=== PATIENT | male | born 1950 | race Caucasian/White ===

== ENCOUNTER 2017-07-26 15:39 | Emergency (ER) | payer BC, MEDICARE ==
[~2017-07-26] VITALS: Ht 177.8 cm; Wt 85.0 kg
[2017-07-26 15:50] VITALS: BP 199/88; PULSE 94; RESP 18; O2SAT 99
[2017-07-26] MEDS ORDERED: SODIUM CHLOR 0.9% 1000 ML INJ 1,000 ML IV ONE (15:53)
--- NOTE | 2017-07-26 15:56 | PD ---
HPI Chief Complaint: Syncope/Near-Syncope Time Seen by Provider: 15:49 Travel History International Travel<30 days: No Contact w/Intl Traveler<30days: No Traveled to known affect area: No History of Present Illness HPI 66-year-old male visiting from [place] presented to emergency department via EMS after witnessed syncopal episode this morning. Patient is down visiting from [place] with a couple of his buddies, they were playing golf yesterday and had several beers. He states he was at the pool this morning had some coffee and a few more beers, when he suddenly felt faint, and unwell and needed some water. He states he broke out in a sweat and then had a witnessed syncopal event for approximately 20-30 seconds. Patient denies previous cardiac history, he denies shortness of breath, chest pain, mild nausea but no vomiting or diarrhea. He has no fever or recent illness noted. Patient states he takes lisinopril 40 mg daily as well as a cholesterol medicine. Otherwise he states he has no significant past medical history. He is allergic to an antibiotic which he cannot remember the name of. [facility] Past Medical History Hypertension: Yes Musculoskeletal: Yes (Rt ankle repair) ?: Not Social History Alcohol Use: Yes (ON OCCASION) Tobacco Use: Yes (5 cigs daily) Substance Use: No Allergies-Medications (Allergen,Severity, Reaction): Uncoded Allergies: unknown antibiotic (Allergy, Mild, 07/26/17) Review of Systems Except as stated in HPI: all other systems reviewed are Neg General / Constitutional: No: Fever, Chills Eyes: No: Diploplia, Blurred Vision, Photophobia, Drainage, Visual changes HENT: Positive: Lightheadedness, No: Headaches, Vertigo, Sore Throat, Rhinitis , Rhinorrhea, Congestion, Nosebleed, Neck Stiffness, Neck Pain Cardiovascular: Positive: Syncope (See history of present illness), No: Chest Pain or Discomfort, Palpitations, Tachycardia, Dyspnea on exertion Respiratory: No: Cough, Shortness of Breath, Wheezing Gastrointestinal: No: Nausea, Vomiting, Diarrhea, Abdominal Pain Genitourinary: No: Dysuria Musculoskeletal: No: Pain Skin: No Rash Neurologic: No: Weakness Psychiatric: No: Depression Endocrine: No: Polydipsia Hematologic/Lymphatic: No: Easy Bruising Physical Exam Narrative GENERAL: Patient appears somewhat tired but otherwise alert and oriented 3. SKIN: Warm and dry. Mild pallor. Normal turgor. Mild diaphoresis. HEAD: Atraumatic. Normocephalic. EYES: Pupils equal and round. No scleral icterus. No injection or drainage. ENT: No nasal bleeding or discharge. Mucous membranes pink and moist. Pharynx is clear. Airways patent. NECK: Trachea midline. Supple and nontender.. CARDIOVASCULAR: Regular rate and rhythm. No murmurs gallops or rubs per RESPIRATORY: No accessory muscle use. Clear to auscultation. Breath sounds equal bilaterally. GASTROINTESTINAL: Abdomen soft, non-tender, nondistended. Hepatic and splenic margins not palpable. MUSCULOSKELETAL: Extremities without clubbing, cyanosis, or edema. No obvious deformities. NEUROLOGICAL: Awake and alert. No obvious cranial nerve deficits. Motor grossly within normal limits. Five out of 5 muscle strength in the arms and legs. Normal speech. PSYCHIATRIC: Appropriate mood and affect; insight and judgment normal. Data Data Last Documented VS Vital Signs Date Time Temp Pulse Resp B/P (MAP) Pulse Ox O2 Delivery O2 Flow Rate FiO2 07/26/17 16:05 92 18 174/72 (106) 104 18 186/80 (115) 102 18 193/86 (121) 07/26/17 16:05 96 Room Air Orders Orders Electrocardiogram (07/26/17 15:53) Complete Blood Count With Diff (07/26/17 15:53) Comprehensive Metabolic Panel (07/26/17 15:53) Magnesium (Mg) (07/26/17 15:53) Ckmb (Isoenzyme) Profile (07/26/17 15:53) Troponin I (07/26/17 15:53) Act Partial Throm Time (Ptt) (07/26/17 15:53) Prothrombin Time / Inr (Pt) (07/26/17 15:53) Urinalysis - C+S If Indicated (07/26/17 15:53) Chest, Single Ap (07/26/17 15:53) Ecg Monitoring (07/26/17 15:53) Iv Access Insert/Monitor (07/26/17 15:53) Oximetry (07/26/17 15:53) Sodium Chloride 0.9% Flush (Ns Flush) (07/26/17 16:00) Sodium Chlor 0.9% 1000 Ml Inj (Ns 1000 M (07/26/17 15:53) Orthostatic Vital Signs (07/26/17 15:53) D-Dimer (07/26/17 15:56) CKMB (07/26/17 16:04) CKMB% (07/26/17 16:04) Labs Laboratory Tests Test 07/26/17 16:04 07/26/17 17:02 White Blood Count 9.0 TH/MM3 Red Blood Count 4.78 MIL/MM3 Hemoglobin 15.1 GM/DL Hematocrit 43.9 % Mean Corpuscular Volume 91.8 FL Mean Corpuscular Hemoglobin 31.5 PG Mean Corpuscular Hemoglobin Concent 34.3 % Red Cell Distribution Width 14.8 % Platelet Count 226 TH/MM3 Mean Platelet Volume 9.0 FL Neutrophils (%) (Auto) 72.4 % Lymphocytes (%) (Auto) 17.3 % Monocytes (%) (Auto) 7.7 % Eosinophils (%) (Auto) 2.1 % Basophils (%) (Auto) 0.5 % Neutrophils # (Auto) 6.5 TH/MM3 Lymphocytes # (Auto) 1.6 TH/MM3 Monocytes # (Auto) 0.7 TH/MM3 Eosinophils # (Auto) 0.2 TH/MM3 Basophils # (Auto) 0.0 TH/MM3 CBC Comment DIFF FINAL Differential Comment Prothrombin Time 10.2 SEC Prothromb Time International Ratio 1.0 RATIO Activated Partial Thromboplast Time 23.0 SEC D-Dimer Quantitative (PE/DVT) 0.25 MG/L FEU Blood Urea Nitrogen 15 MG/DL Creatinine 1.07 MG/DL Random Glucose 118 MG/DL Total Protein 7.3 GM/DL Albumin 3.9 GM/DL Calcium Level 8.2 MG/DL Magnesium Level 2.3 MG/DL Alkaline Phosphatase 76 U/L Aspartate Amino Transf (AST/SGOT) 22 U/L Alanine Aminotransferase (ALT/SGPT) 30 U/L Total Bilirubin 0.4 MG/DL Sodium Level 137 MEQ/L Potassium Level 4.1 MEQ/L Chloride Level 102 MEQ/L Carbon Dioxide Level 26.1 MEQ/L Anion Gap 9 MEQ/L Estimat Glomerular Filtration Rate 69 ML/MIN Total Creatine Kinase 131 U/L Creatine Kinase MB 2.3 NG/ML Troponin I LESS THAN 0.02 NG/ML Urine Color YELLOW Urine Turbidity CLEAR Urine pH 6.0 Urine Specific [place] 1.013 Urine Protein NEG mg/dL Urine Glucose (UA) NEG mg/dL Urine Ketones NEG mg/dL Urine Occult Blood NEG Urine Nitrite NEG Urine Bilirubin NEG Urine Urobilinogen LESS THAN 2.0 MG/DL Urine Leukocyte Esterase NEG Urine RBC LESS THAN 1 /hpf Urine WBC 1 /hpf Urine Mucus FEW /lpf Microscopic Urinalysis Comment CULT NOT INDICATED MDM Medical Decision Making Medical Screen Exam Complete: Yes Emergency Medical Condition: Yes Differential Diagnosis Electrolyte imbalance. Cardiac syndrome. PE. Syncopal episode. Dehydration. Narrative Course Patient appears medically stable at time of exam EKG shows sinus rhythm with first AV block with possible anterior septal myocardial infarction of indeterminate age. This is reviewed with Dr. Canales who recommends checking a d-dimer to rule out PE. Labs ordered including CBC, CMP, urinalysis, magnesium, cardiac panel, and d- dimer. IV access is obtained the patient is given 1000 mL normal saline bolus. Orthostatics are ordered. Chest x-ray is ordered. Chest x-ray is unremarkable for acute process. CBC is unremarkable. Coagulation studies are normal. D-dimer is negative. Chemistries are unremarkable except for a GFR of 69, glucose of 118, calcium is 8.2. First troponin is less than 0.02. Urinalysis is unremarkable. Patient is reassessed after saline boluses and he feels much improved. Discussed the patient with Dr. Canales who recommends possible observation in the chest pain center. This was discussed with the patient feels that he does not need to do that at this time. I feel he is appropriately stable for discharge and will follow-up if symptoms recur. Patient is encouraged to take it easy and push fluids over the next several days. I recommend avoiding alcohol for several days as well. Diagnosis Primary Impression: Syncope and collapse Patient Instructions: General Instructions, Lightheadedness (ED) Additional Instructions: Chest x-ray is unremarkable for acute process. CBC is unremarkable. Coagulation studies are normal. D-dimer is negative. Chemistries are unremarkable except for a GFR of 69, glucose of 118, calcium is 8.2. First troponin is less than 0.02. Urinalysis is unremarkable. Patient is reassessed after saline boluses and he feels much improved. Discussed the patient with Dr. Canales who recommends possible observation in the chest pain center. This was discussed with the patient feels that he does not need to do that at this time. I feel he is appropriately stable for discharge and will follow-up if symptoms recur. Patient is encouraged to take it easy and push fluids over the next several days. I recommend avoiding alcohol for several days as well. Med/Other Pt SpecificInfo: Prescription(s) given Disposition: 01 DISCHARGE HOME Condition: Stable Simon Hardy July 26, 2017 15:56
[2017-07-26] MEDS ORDERED: SODIUM CHLORIDE 0.9% FLUSH 10 ML FLUSH IVF PRN (16:00)
[2017-07-26 16:05] VITALS: BP_SYST 174; BP_SYST 186; BP_SYST 193; BP_DIAS 72; BP_DIAS 80; BP_DIAS 86; RESP 18; O2SAT 96
--- NOTE | 2017-07-26 16:28 | RADRPT ---
EXAM DATE/TIME: 07/26/2017 16:07 [facility] COMPARISON: No previous studies available for comparison. INDICATIONS : Syncopal episode. Patient fainted today. MEDICAL HISTORY : Hypertension. SURGICAL HISTORY : None. ENCOUNTER: Initial ACUITY: 1 day PAIN SCORE: 0/10 LOCATION: Bilateral chest FINDINGS: A single view of the chest demonstrates the lungs to be symmetrically aerated without evidence of mas s, infiltrate or effusion. The cardiomediastinal contours are unremarkable. Osseous structures are intact. CONCLUSION: No acute disease. Wilder Mcnamara MD FACR on July 26, 2017 at 16:25 Board Certified Radiologist. This report was verified electronically.
[2017-07-26 16:55] LABS: ALBUMIN 3.9 GM/DL (3.4-5.0); ALT (GPT) 30 U/L (12-78); AST (GOT) 22 U/L (15-37); BICARBONATE 26.1 MEQ/L (21.0-32.0); BLOOD UREA NITROGEN 15 MG/DL (7-18); CALCIUM 8.2 MG/DL (8.5-10.1); CHLORIDE 102 MEQ/L (98-107); CREATININE 1.07 MG/DL (0.60-1.30); GLOMERULAR FILTRATION RATE 69 ML/MIN (>89); GLUCOSE,RANDOM 118 MG/DL (74-106); MAGNESIUM 2.3 MG/DL (1.5-2.5); SODIUM (NA) 137 MEQ/L (136-145)
[2017-07-26 16:59] LABS: ALKALINE PHOSPHATASE 76 U/L (45-117); TOTAL BILIRUBIN ADULT 0.4 MG/DL (0.2-1.0); TOTAL PROTEIN 7.3 GM/DL (6.4-8.2); TROPONIN I LESS THAN 0.02 NG/ML (0.02-0.05)
[2017-07-26 17:03] LABS: PROTHROMBIN TIME - PATIENT 10.2 SEC (9.8-11.6)
[2017-07-26 17:17] LABS: AUTOMATED NEUTROPHIL # 6.5 TH/MM3 (1.8-7.7); BASOPHIL % 0.5 % (0.0-2.0); EOSINOPHIL # 0.2 TH/MM3 (0-0.4); EOSINOPHIL % 2.1 % (0.0-4.0); HEMATOCRIT 43.9 % (39.0-51.0); HEMOGLOBIN 15.1 GM/DL (13.0-17.0); LYMPH % 17.3 % (9.0-44.0); LYMPHOCYTE # 1.6 TH/MM3 (1.0-4.8); MEAN CELL VOLUME 91.8 FL (80.0-100.0); MEAN CORPUSCULAR HEMOGLOBIN 31.5 PG (27.0-34.0); MEAN CORPUSCULAR HGB CONC 34.3 % (32.0-36.0); MONO % 7.7 % (0.0-8.0); MONOCYTE # 0.7 TH/MM3 (0-0.9); NEUT % 72.4 % (16.0-70.0); PLATELET COUNT 226 TH/MM3 (150-450); RED BLOOD COUNT 4.78 MIL/MM3 (4.50-5.90); RED CELL DISTRIBUTION WIDTH 14.8 % (11.6-17.2)
[2017-07-26 17:25] LABS: BILIRUBIN, URINE NEG (NEG); BLOOD, URINE NEG (NEG); GLUCOSE,URINE NEG (NEG); KETONE, URINE NEG (NEG); MUCUS URINE FEW /lpf (OCC); NITRITE,URINE NEG (NEG); URINE COLOR YELLOW (YELLW/STRAW); URINE LEUKOCYTE ESTERASE NEG (NEG)
--- NOTE | 2017-07-27 17:38 | EKG ---
Date Performed: 07/26/2017 Time Performed: 15:48:57 PTAGE: 66 years EKG: Sinus rhythm WITH FIRST DEGREE AV BLOCK POSSIBLE LEFT ATRIAL ENLARGEMENT INCOMPLETE RIGHT BUNDLE BRANCH BLOCK ANT EROSEPTAL MYOCARDIAL INFARCTION ABNORMAL ECG INTERPRETATION BASED ON A DEFAULT AGE OF 41 YEARS NO PREVIOUS TRACING DOCTOR: Moisés Moise Interpretating Date/Time 07/27/2017 17:36:17
== END 2017-07-26 19:00 | disposition home or self-care (01) ==
LOC: NEPE 15:39
DX: R55 Syncope and collapse (principal); I10 Essential (primary) hypertension; R94.31 Abnormal electrocardiogram [ECG] [EKG]; Z72.0 Tobacco use
CPT/HCPCS: 71045; 80053; 81001; 82550; 82552; 83735; 84484; 85025; 85379; 85610; 85730; 93005; 99285; J7030